=== PATIENT | male | born 1930 | race Caucasian/White ===

== ENCOUNTER 2016-05-30 14:44 | Emergency (ER) | payer MEDICARE ==
[2016-05-30 15:39] LABS: BASOPHIL 0.6 % (0-2); EOSINOPHIL 6.1 % (0-7); HCT 38.1 % (42.0-52.0); HGB 12.2 g/dl (13.2-18.0); LYMPHOCYTE 32.3 % (15-48); MCH 31.2 pg (25.0-31.0); MCV 97.4 fL (78.0-100.0); MONOCYTE 9.6 % (0-12); MPV 9.4 fL (6.0-9.5); NEUTROPHIL 51.4 % (41-80); PLT 189 K/uL (150-400); RBC 3.91 M/uL (4.70-6.00); RDW 13.8 % (11.5-14.0); WBC 5.4 K/uL (4.0-10.5)
[2016-05-30 15:52] LABS: CREATININE 0.9 mg/dL (0.7-1.2); POTASSIUM 4.4 mmol/L (3.5-5.1)
[2016-05-30 16:39] LABS: BILIRUBIN NEGATIVE (NEGATIVE); BLOOD NEGATIVE Ery/uL (NEGATIVE); CLARITY CLEAR (CLEAR); COLOR YELLOW (YELLOW); GLUCOSE (U) NORMAL (NORMAL); KETONE (U) NEGATIVE (NEGATIVE); LEUKOCYTES NEGATIVE Leu/uL (NEGATIVE); NITRITE NEGATIVE (NEGATIVE); PROTEIN NEGATIVE (NEGATIVE); SPECIFIC GRAVITY 1.015 (1.001-1.030)
== END 2016-05-30 17:50 | disposition home or self-care (01) ==
LOC: FER 14:44
PROVIDERS: Internal Medicine
DX: S01.21XA Laceration without foreign body of nose, initial encounter (principal); J44.9 Chronic obstructive pulmonary disease, unspecified; F41.9 Anxiety disorder, unspecified; E03.9 Hypothyroidism, unspecified; G20 Parkinson's disease; N40.0 Benign prostatic hyperplasia without lower urinary tract symptoms; Z95.1 Presence of aortocoronary bypass graft; Z95.0 Presence of cardiac pacemaker; W19.XXXA Unspecified fall, initial encounter
CPT/HCPCS: 36415; 70450; 72125; 80048; 81003; 85025; 93005

== ENCOUNTER 2016-06-04 01:58 | Emergency (ER) | payer MEDICARE ==
[2016-06-04 03:22] LABS: BASOPHIL 0.1 % (0-2); EOSINOPHIL 1.3 % (0-7); HCT 25.5 % (42.0-52.0); HGB 8.4 g/dl (13.2-18.0); LYMPHOCYTE 13.6 % (15-48); MCH 31.6 pg (25.0-31.0); MCHC 32.9 g/dL (32.0-36.0); MCV 95.9 fL (78.0-100.0); MONOCYTE 7.9 % (0-12); MPV 9.5 fL (6.0-9.5); NEUTROPHIL 77.1 % (41-80); PLT 190 K/uL (150-400); RBC 2.66 M/uL (4.70-6.00); RDW 13.5 % (11.5-14.0); WBC 10.2 K/uL (4.0-10.5)
[2016-06-04 03:30] LABS: INR 1.28 (0.9-1.2); PROTHROMBIN TIME 15.5 SECONDS (11.7-14.0); PTT 38.4 SECONDS (23.2-31.4)
[2016-06-04 06:49] LABS: BASOPHIL 0.2 % (0-2); HGB 7.3 g/dl (13.2-18.0); LYMPHOCYTE 15.5 % (15-48); MCH 31.9 pg (25.0-31.0); MCHC 33.2 g/dL (32.0-36.0); MCV 96.1 fL (78.0-100.0); MONOCYTE 6.5 % (0-12); MPV 9.6 fL (6.0-9.5); NEUTROPHIL 76.8 % (41-80); PLT 184 K/uL (150-400); RBC 2.29 M/uL (4.70-6.00); RDW 13.2 % (11.5-14.0)
== END 2016-06-04 09:32 | disposition other institution (70) ==
LOC: FER 01:58
PROVIDERS: Emergency Medicine
DX: R04.0 Epistaxis (principal); D64.9 Anemia, unspecified; I10 Essential (primary) hypertension; I48.91 Unspecified atrial fibrillation; G20 Parkinson's disease; F32.9 Major depressive disorder, single episode, unspecified
CPT/HCPCS: 36415; 36430; 85025; 85610; 85730; 86850; 86900; 86901; 86922; P9016